=== PATIENT | male | born 1955 | race Caucasian/White ===

== ENCOUNTER 2018-12-08 20:55 | Inpatient (IN) | payer OTHER ==
[~2018-12-08] VITALS: Ht 177.8 cm; Wt 115.8 kg
[~2018-12-08 20:55] MED LIST: 'TENORMIN50 MG PO; DAYPRO600 M1 PO; FLONASE ALLERG9.9 ML NAS; INDOCIN25 MG PO; LISINOPRIL/HCTZ1 TA2 PO; LISINOPRIL40 MG PO; MEDROL DOSEPAK4 MG PO; MINOXIDIL10 MG PO; NEXIUM40 MG PO; NORVASC5 MG PO; PERCOCET 325 MG1 TA2 PO; ROBAXIN750 MG PO; VICODIN 500 MG-1 TAB PO; XYZAL5 MG PO; ZITHROMAX Z PA250 MG PO
[2018-12-08 21:00] VITALS: BP 143/67
[2018-12-08 21:12] LABS: BASO # 0.1 10*3/uL (0.0-0.1); BASO % 0.8 % (0.0-1.0); EOS # 0.2 10*3/uL (0.0-0.4); EOS % 3.5 % (1.0-4.0); HEMATOCRIT 37.7 % (42.0-52.0); HEMOGLOBIN 12.8 g/dl (14.0-18.0); LYMPH # 1.7 10*3/uL (1.3-4.4); LYMPH % 27.4 % (27.0-41.0); MEAN CELL VOLUME 85.9 fl (80.0-94.0); MEAN CORPUSCULAR HGB 29.2 pg (27.0-31.0); MEAN PLATELET VOLUME 9.7 fl (9.6-12.3); MONO # 0.7 10*3/uL (0.1-1.0); MONO % 10.7 % (3.0-9.0); NEUT # 3.6 10*3/uL (2.3-7.9); NEUT % 56.7 % (47.0-73.0); PLATELET COUNT AUTOMATED 280 10*3/uL (130-400); RED BLOOD COUNT 4.39 10*6/uL (4.50-5.90); RED CELL DISTRI WIDTH 14.6 % (0-14.5); WHITE BLOOD COUNT 6.4 10*3/uL (4.8-10.8)
[2018-12-08 21:23] LABS: ACT PARTIAL THROMBO TIME 25.2 SECONDS (20.0-32.1); INTERNATIONAL NORM RATIO 0.9 (2.0-3.5)
[2018-12-08 21:29] LABS: ALBUMIN 3.9 gm/dl (3.1-4.5); ALKALINE PHOSPHATASE 61 U/L (45-117); BUN 9 mg/dl (7-24); CHLORIDE 100 mmol/L (98-107); CREATININE 0.98 mg/dL (0.70-1.30); LIPASE 148 U/L (73-393); POTASSIUM 3.4 mmol/L (3.5-5.1); SGOT/AST 41 IU/L (3-35); SGPT/ALT 39 U/L (12-78); SODIUM 133 mmol/L (136-145); TOTAL PROTEIN 7.3 gm/dL (6.4-8.2)
[2018-12-08 21:31] LABS: ACETAMINOPHEN (TYLENOL) < 5.0 ug/ml (10-30); TROPONIN I < 0.015 ng/ml (<0.045)
--- NOTE | 2018-12-08 21:31 | NUR ---
LAB CALLED WITH CRITICAL VALUE OF LACTIC 2.4 AND ETOH 319. NOTIFIED.
[2018-12-08 21:59] LABS: BILIRUBIN NEGATIVE (NEGATIVE); BLOOD NEGATIVE (NEGATIVE); CLARITY CLEAR (CLEAR); COLOR YELLOW (YELLOW); GLUCOSE NEGATIVE (NEGATIVE); KETONE NEGATIVE (NEGATIVE); LEUKO ESTERASE NEGATIVE (NEGATIVE); NITRITE NEGATIVE (NEGATIVE); SPECIFIC GRAVITY <= 1.005 (1.005-1.030); UROBILINOGEN 0.2 E.U./dl (0.2-1.0)
[2018-12-08 22:08] LABS: URINE AMPHETAMINES < 1000 (1000ng/ml); URINE BARBITURATES < 200 (200ng/ml); URINE BENZODIAZEPINES < 200 (200ng/ml); URINE CANNABINOIDS (THC) < 50 (50ng/ml); URINE COCAINE < 300 (300ng/ml); URINE METHADONE < 300 (300ng/ml); URINE OPIATES < 300 (300ng/ml)
[2018-12-08 22:15] LABS: URINE PHENCYCLIDINE < 25 (25ng/ml)
[2018-12-08 22:46] VITALS: BP 136/72
--- NOTE | 2018-12-08 23:39 | NUR ---
LAB CALLED WITH CRITICAL LACTIC LEVEL 2.2.
[2018-12-09 01:06] VITALS: BP 128/76
[2018-12-09 01:20] VITALS: BP 128/65
--- NOTE | 2018-12-09 01:20 | NUR ---
A 63, admitted to ICCU, under the services of BRANNON Reeves DO with a diagnosis of ETOH INTOXICATION SYNCOPE ACUTE HYPOKALEMIA. Chief complaint is FALL AT HOME. Patient arrived via stretcher from ER. Monitor applied. Initial assessment completed. Vital signs taken and recorded. BRANNON REEVES DO notified of admission to the unit. Orders received. See assessment for past medical history, medications and allergies. Patient and/or family oriented to unit. [facility] visitation policy reviewed. Clothing/patient valuable form completed. GILLIAN SILVERIO
[2018-12-09] MEDS ORDERED: HYDROCHLOROTHIA25 M1 PO (02:07)
[2018-12-09] MEDS ORDERED: OMEPRAZOLE40 MG PO (02:12)
[2018-12-09] MEDS ORDERED: MELOXICAM15 MG PO (02:12)
[2018-12-09] MEDS ORDERED: ROSUVASTATIN CA10 MG PO (02:12)
[2018-12-09 04:00] VITALS: BP 122/52
[2018-12-09 05:01] LABS: ALBUMIN 3.3 gm/dl (3.1-4.5); ALKALINE PHOSPHATASE 53 U/L (45-117); BUN 8 mg/dl (7-24); CHLORIDE 107 mmol/L (98-107); CHOLESTEROL 91 mg/dL (<200); CREATININE 0.81 mg/dL (0.70-1.30); HDL CHOLESTEROL 44 mg/dl (40-60); LDL CHOLESTEROL 23 mg/dL (9-159); PHOSPHOROUS 2.9 mg/dL (2.5-4.9); POTASSIUM 3.3 mmol/L (3.5-5.1); SGOT/AST 32 IU/L (3-35); SGPT/ALT 35 U/L (12-78); SODIUM 142 mmol/L (136-145); TOTAL PROTEIN 6.4 gm/dL (6.4-8.2); TRIGLYCERIDES 118 mg/dl (<150); VLDL CHOLESTEROL 24 mg/dL (6-40)
[2018-12-09 06:24] LABS: BASO % 0.6 % (0.0-1.0); EOS # 0.2 10*3/uL (0.0-0.4); EOS % 3.5 % (1.0-4.0); HEMATOCRIT 34.8 % (42.0-52.0); HEMOGLOBIN 11.6 g/dl (14.0-18.0); LYMPH % 30.6 % (27.0-41.0); MEAN CELL VOLUME 86.1 fl (80.0-94.0); MEAN CORPUSCULAR HGB 28.7 pg (27.0-31.0); MEAN CORPUSCULAR HGB CONC 33.3 g/dl (33.0-37.0); MEAN PLATELET VOLUME 10.3 fl (9.6-12.3); MONO # 0.7 10*3/uL (0.1-1.0); MONO % 10.3 % (3.0-9.0); NEUT # 3.6 10*3/uL (2.3-7.9); NEUT % 54.4 % (47.0-73.0); PLATELET COUNT AUTOMATED 281 10*3/uL (130-400); RED BLOOD COUNT 4.04 10*6/uL (4.50-5.90); RED CELL DISTRI WIDTH 15.1 % (0-14.5); WHITE BLOOD COUNT 6.6 10*3/uL (4.8-10.8)
[2018-12-09 07:47] LABS: VITAMIN D, 25-HYDROXY 36.5 ng/mL (30-100)
[2018-12-09 08:00] VITALS: BP 164/77
--- NOTE | 2018-12-09 08:10 | NUR ---
Awake and alert . at bedside for breakfast. BLE swelling non pitting. Dr. Norwood here aware of hypokalemia, supplement ordered.
--- NOTE | 2018-12-09 11:00 | NUR ---
Dr. Quiroga in to [facility]. Echo complete at bedside.
[2018-12-09 12:00] VITALS: BP 180/92
--- NOTE | 2018-12-09 13:58 | NUR ---
Echo resulted, Discharge instruction given, Voiced understanding. W/C escorted to main lobby , spouse arrived and pt/ was discharged to home.
== END 2018-12-09 13:45 | disposition home or self-care (01) | DRG 392 ==
LOC: ED 20:55 → EDHOLD 23:41 → ICCU 23:41
PROVIDERS: Emergency Medicine Emergency Medical Services; Internal Medicine; ADMIT Internal Medicine
DX: K21.9 Gastro-esophageal reflux disease without esophagitis (principal); E87.1 Hypo-osmolality and hyponatremia; E87.2 Acidosis; F10.129 Alcohol abuse with intoxication, unspecified; E87.6 Hypokalemia; Z96.659 Presence of unspecified artificial knee joint; D64.9 Anemia, unspecified; R73.9 Hyperglycemia, unspecified; Y90.9 Presence of alcohol in blood, level not specified; I10 Essential (primary) hypertension; E83.42 Hypomagnesemia; S00.81XA Abrasion of other part of head, initial encounter; W18.39XA Other fall on same level, initial encounter; Y93.89 Activity, other specified; Y92.89 Other specified places as the place of occurrence of the external cause; Y99.8 Other external cause status; Z90.49 Acquired absence of other specified parts of digestive tract; Z87.891 Personal history of nicotine dependence; Z86.73 Personal history of transient ischemic attack (TIA), and cerebral infarction without residual deficits; Z80.3 Family history of malignant neoplasm of breast; Z79.899 Other long term (current) drug therapy

== ENCOUNTER 2024-10-01 02:05 | Emergency (ER) | payer OTHER ==
[~2024-10-01] VITALS: Ht 177.8 cm; Wt 100.2 kg
[~2024-10-01 02:05] MED LIST changes: +HYDROCHLOROTHIA25 M1 PO; +MELOXICAM15 MG PO; +OMEPRAZOLE40 MG PO; +ROSUVASTATIN CA10 MG PO
[2024-10-01 02:28] LABS: BASO # 0.0 10*3/uL (0.0-0.1); BASO % 0.2 % (0.0-1.0); EOS # 0.1 10*3/uL (0.0-0.4); EOS % 0.5 % (1.0-4.0); MEAN CELL VOLUME 87.4 fl (80.0-94.0); MEAN CORPUSCULAR HGB 28.6 pg (27.0-31.0); MEAN PLATELET VOLUME 9.7 fl (9.6-12.3); MONO # 1.5 10*3/uL (0.1-1.0); MONO % 13.7 % (3.0-9.0); NEUT # 8.4 10*3/uL (2.3-7.9); NEUT % 79.5 % (47.0-73.0); NUCLEATED RED BLOOD CELL 0.0 % (0.0-0.0); NUCLEATED RED BLOOD CELL 0.0 10*3/uL (0.0-0.0); PLATELET COUNT AUTOMATED 249 10*3/uL (130-400); RED CELL DISTRI WIDTH 13.8 % (0-14.5)
[2024-10-01 02:47] LABS: BUN 11 mg/dl (9-23)
[2024-10-01] MEDS ORDERED: BUMETANIDE 1 MG/4 ML VIAL IV ONE (05:50)
== END 2024-10-01 07:03 | disposition home or self-care (01) ==
LOC: ED 02:05
PROVIDERS: Internal Medicine
DX: I11.0 Hypertensive heart disease with heart failure (principal); I50.33 Acute on chronic diastolic (congestive) heart failure; R07.89 Other chest pain; R00.0 Tachycardia, unspecified; R60.0 Localized edema; E78.5 Hyperlipidemia, unspecified; E11.9 Type 2 diabetes mellitus without complications; Z79.82 Long term (current) use of aspirin; Z79.899 Other long term (current) drug therapy; Z90.49 Acquired absence of other specified parts of digestive tract; Z98.890 Other specified postprocedural states; Z87.891 Personal history of nicotine dependence